=== PATIENT | female | born 1960 | race Caucasian/White ===

== ENCOUNTER 2023-06-09 09:01 | Outpatient (CLI) | payer MEDICARE, OTHER, SELFPAY ==
--- NOTE | ~2023-06-09 | CT_ITS ---
EXAMINATION: CT abdomen pelvis w con DATE: 06/09/2023 09:56 INDICATION: Mid abdominal pain. TECHNIQUE: Computed tomography (CT) of the abdomen and pelvis was performed with 100 mL Omnipaque 350 intravenous contrast. Automated exposure control and iterative reconstruction technique were employe d. The dose-length product was 1549.72 mGy-cm. COMPARISON: None. FINDINGS: The visualized portions of the lung bases demonstrate mild atelectasis. No pleural effusion . The heart size is normal. No pericardial effusion. There is diffuse hepatic steatosis. There are cy sts in the liver measuring up to 13 mm. There are changes of cholecystectomy. The spleen, pancreas, a nd right adrenal gland are normal. There is a 15 mm mass in left adrenal gland measuring soft tissue attenuation. The kidneys are normal. There is diverticulosis of the colon without evidence of diverti culitis. The appendix is fluid-filled and measures 10 mm in diameter. There is no fat stranding aroun d the appendix. There are no pathologically enlarged lymph nodes. There is no free intraperitoneal fl uid. There is severe lumbar spondylosis and moderate thoracic spondylosis. There is mild chronic ante rior wedging of T11-L2 vertebral bodies. IMPRESSION: 1. Appendiceal diameter of 10 mm without specific findings of inflammation, which is indeterminate fo r acute appendicitis. 2. 15 mm left adrenal mass. In the absence of known malignancy, this finding is likely an adenoma. 3. Diffuse hepatic steatosis. Reviewed, dictated and finalized at location B. IMPRESSION: 1. Appendiceal diameter of 10 mm without specific findings of inflammation, whi ch is indeterminate for acute appendicitis. 2. 15 mm left adrenal mass. In the absence of known malignancy, this finding is likely an adenoma. 3. Diffuse hepatic steatosis.
[2023-06-09 09:48] LABS: Estimated Glomerular Filt Rate > 60
== END 2023-06-09 09:02 | disposition home or self-care (01) ==
DX: R10.9 Unspecified abdominal pain (principal); K76.0 Fatty (change of) liver, not elsewhere classified; D35.02 Benign neoplasm of left adrenal gland
CPT/HCPCS: 74177; Q9967

== ENCOUNTER 2025-05-01 00:32 | Emergency (ER) | payer MEDICARE, SELFPAY ==
--- NOTE | ~2025-05-01 | XR_ITS ---
Supine and upright views of the abdomen Clinical history: Constipation Findings: Bowel gas pattern is nonspecific. No evidence for obstruction or free air. No abnormal mass lesion or calcification is seen.. Degenerative change throughout the lumbar spine. Impression: Nonspecific bowel gas pattern. Reviewed, dictated and finalized at [facility]. Impression: Nonspecific bowel gas pattern.
[2025-05-01 00:42] VITALS: BP 114/58; PULSE 117; RESP 23; TEMP 36.7; O2SAT 100
[2025-05-01] MEDS: KETOROLAC 15 MG/ML VIAL (*BKC) IV PUSH (01:17)
[2025-05-01 01:18] LABS: Hematocrit 36.4 % (37.0-47.0); Hemoglobin 11.9 g/dL (12.0-15.0); Mean Corpuscular HGB Conc 32.7 g/dl (32-36); Mean Corpuscular Hemoglobin 28.9 pg (26-34); Mean Corpuscular Volume 88.3 fl (80-100); Mean Platelet Volume 10.2 fl (7.4-10.4); Platelet Count Result 220 k/mm3 (150-375); Red Blood Count 4.12 M/mm3 (4.2-5.4); Red Cell Distribution Width 16.9 % (11.5-14.5); White Blood Count 22.4 K/mm3 (4.5-10.0)
[2025-05-01] MEDS: DOCUSATE SODIUM 100 MG CAPSULE PO (01:18)
[2025-05-01] MEDS: SODIUM CHLORIDE 0.9% IV 1,000 ML 999 ML IV CONT (01:18)
[2025-05-01] MEDS: polyethylene glycoL 3350 17 GM POWD.PACK PO (01:18)
[2025-05-01 01:44] LABS: Alanine Aminotransferase 36 U/L (6-35); Albumin Level 3.7 g/dL (3.5-5.1); Alkaline Phosphatase 73 U/L (38-126); Anion Gap 10 mmol/L (4-12); Aspartate Amino Transferase 48 U/L (14-36); Bilirubin,Total 0.6 mg/dL (0.2-1.3); Blood Urea Nitrogen 19 mg/dL (7-17); Carbon Dioxide 24 mmol/L (22-30); Chloride 102 mmol/L (98-107); Estimated Glomerular Filt Rate > 60; Glucose 189 mg/dL (65-110); Potassium 4.3 mmol/L (3.4-5.0); Sodium 136 mmol/L (137-145)
[2025-05-01 01:52] LABS: Band Neutrophils Percent 6 % (0-6); Lymphocytes Absolute Manual 1.12 K/mm3 (1.1-4.5); Metamyelocytes Percent 1 %; Monocytes Absolute Manual 0.44 K/mm3 (0.1-0.90); Monocytes Percent Manual 2 % (3-9); Neutrophils Percent Manual 86 % (46-73); Total Cells Counted 100
[2025-05-01 01:53] LABS: Burr Cells 1+; Hypochromasia 1+; Platelet Estimate Adequate (Adequate); Schistocytes None Seen
--- NOTE | 2025-05-01 02:12 | ED_ITS ---
HPI - Abdominal Pain General Chief Complaint: Abdominal Pain Stated Complaint: constipation after chemo Time Seen by Provider: 05/01/25 00:47 Source: patient Mode of arrival: ambulatory Limitations: no limitations History of Present Illness HPI narrative: This is a 65 year old female that presents to the ER for constipation. Ongoing over the last couple of days. Reports hard stool balls. Reports rectal pain. Reports she is currently receiving chemotherapy for breast cancer. She has history of chronic constipation and takes Linzess. She has not tried any stool softeners, laxatives or enemas. Denies hematochezia. Related Data Allergies Allergy/AdvReac Type Severity Reaction Status Date / Time erythromycin base Allergy Unknown STOMACHES Verified 05/01/25 00:34 PAINS Review of Systems 2 Review of Systems: All systems reviewed & are unremarkable except as noted in HPI and below PMFSH Past Medical History Medical History (Updated 05/02/25 @ 09:10 by Isabel Pate PA-C) History of hyperlipidemia History of gastroesophageal reflux (GERD) History of diabetes mellitus History of breast cancer Exam 2 Narrative: GENERAL: Well-appearing, well-nourished, and in no acute distress. HEAD: Normocephalic, atraumatic. EYES: EOMI. CHEST: Clear to auscultation. No respiratory distress. No wheezes rales or rhonchi HEART: Regular rate and rhythm. No murmur heard. Normal peripheral pulses. ABDOMEN: Soft, nontender, nondistended, normal active bowel sounds. EXTREMITIES: Normal range of motion. No edema. SKIN: Warm, dry, no rash. NEURO: No focal deficits. Alert and oriented x3. PSYCH: Normal mood and affect Course Course Emergency Course: patient was given enemas with relief Vital Signs Vital signs: Vital Signs Temperature 98.1 F 05/01/25 00:42 Pulse Rate 117 H 05/01/25 00:42 Respiratory Rate 23 H 05/01/25 00:42 Blood Pressure 114/58 L 05/01/25 00:42 Pulse Oximetry 100 05/01/25 00:42 Oxygen Delivery Room Air 05/01/25 00:42 Temperature 98.1 F 05/01/25 00:42 Pulse Rate 117 H 05/01/25 00:42 Respiratory Rate 23 H 05/01/25 00:42 Blood Pressure 114/58 L 05/01/25 00:42 Pulse Oximetry 100 05/01/25 00:42 Oxygen Delivery Room Air 05/01/25 00:42 MDM - Abdominal Pain MDM Narrative Medical decision making narrative: Patient presents to the ER for constipation. Reports chronic history of constipation for which she takes Linzess. Reports hard, small stools. Tachycardic upon arrival. This normalized with IV fluids. Patient is afebrile and non toxic appearing. CBC with leukocytosis to 22.4, patient is currently on steroids. She did also receive her Neulasta injection today. She does not endorse any infectious symptoms. Hemoglobin is 11.9. Metabolic panel with mild transaminitis, patient reports history of fatty liver disease. KUB showing stool distending the rectum. She was given enemas with relief. Instructed on continued care of constipation. She was given warnings to return to the ER Differential Diagnosis Differential diagnosis: Likely constipation and other (dehydration, medication adverse reaction) Lab Data Attestation: I reviewed the patient's lab results. 05/01/25 01:09 05/01/25 01:09 Labs: Lab Results 05/01/25 Range/Units 01:09 WBC 22.4 H (4.5-10.0) K/mm3 RBC 4.12 L (4.2-5.4) M/mm3 Hgb 11.9 L (12.0-15.0) g/dL Hct 36.4 L (37.0-47.0) % MCV 88.3 (80-100) fl MCH 28.9 (26-34) pg MCHC 32.7 (32-36) g/dl RDW 16.9 H (11.5-14.5) % Plt Count 220 (150-375) k/mm3 MPV 10.2 (7.4-10.4) fl Immature Gran % (Auto) Not Reportable Neut % (Auto) Not Reportable Lymph % (Auto) Not Reportable [place] % (Auto) Not Reportable Eos % (Auto) Not Reportable Baso % (Auto) Not Reportable Lymph # (Auto) Not Reportable [place] # (Auto) Not Reportable Eos # (Auto) Not Reportable Baso # (Auto) Not Reportable Abs Immat Gran (auto) Not Reportable Absolute Neuts (auto) Not Reportable Absolute Nucleated RBC Not Reportable Total Counted 100 Neutrophils % (Manual) 86 H (46-73) % Band Neutrophils % 6 (0-6) % Lymphocytes % (Manual) 5.0 L (18-44) % Monocytes % (Manual) 2 L (3-9) % Metamyelocytes % 1 % Nucleated RBC % Not Reportable Abs Neuts (Manual) 20.60 H (1.3-6.7) K/mm3 Abs Lymphs (Manual) 1.12 (1.1-4.5) K/mm3 Abs Monocytes (Manual) 0.44 (0.1-0.90) K/mm3 Platelet Estimate Adequate (Adequate) Hypochromasia 1+ [place] Cells 1+ Schistocytes None seen Sodium 136 L (137-145) mmol/L Potassium 4.3 (3.4-5.0) mmol/L Chloride 102 (98-107) mmol/L Carbon Dioxide 24 (22-30) mmol/L Anion Gap 10 (4-12) mmol/L BUN 19 H (7-17) mg/dL Creatinine 0.92 (0.7-1.0) mg/dL Estim Creat Clear Calc Not Reportable Estimated GFR > 60 (59 - ) Glucose 189 H (65-110) mg/dL Calcium 9.0 (8.4-10.2) mg/dL Total Bilirubin 0.6 (0.2-1.3) mg/dL AST 48 H (14-36) U/L ALT 36 H (6-35) U/L Alkaline Phosphatase 73 (38-126) U/L Total Protein 6.0 L (6.3-8.2) g/dL Albumin 3.7 (3.5-5.1) g/dL Imaging Data My impression: KUB: Stool distending the rectum Radiologist's impression: ITS Impressions Abdomen X-Ray 05/01/25 05:21 Impression: Nonspecific bowel gas pattern. Critical Care Time Critical Care Time Critical Care Time: No Discharge Plan Discharge Clinical Impression: Constipation Qualifiers: Constipation type: unspecified constipation type Qualified Code(s): K59.00 - Constipation, unspecified Patient Disposition: Home Condition: Improved Instructions: Constipation (ED) Additional Instructions: Return to the ER if you experience fever, abdominal pain with nausea and vomiting, you are unable to keep down liquids or solids, blood in the stool, or any other symptoms that are concerning to you Remain well hydrated. Take Colace daily. Miralax as needed. Continue Linzess as prescribed Follow up with your oncologist Patient Language: Kyr[place] Follow-up/Referrals: PHYSICIAN NOT ON STAFF,NONSTAFF [Primary Care Provider] -
== END 2025-05-01 04:00 | disposition home or self-care (01) ==
PROVIDERS: Emergency Provider Physician Assistant
DX: K59.00 Constipation, unspecified (principal); E11.9 Type 2 diabetes mellitus without complications; E78.5 Hyperlipidemia, unspecified; K21.9 Gastro-esophageal reflux disease without esophagitis; Z85.3 Personal history of malignant neoplasm of breast
CPT/HCPCS: 36415; 74018; 80053; 85025; 96361; 96374; 99284; A9270; J1885; J7030